=== PATIENT | male | born 1995 | race Caucasian/White ===

== ENCOUNTER 2017-06-06 19:54 | Emergency (ER) | payer OTHER ==
[~2017-06-06] VITALS: Ht 198.1 cm; Wt 95.5 kg
[2017-06-06 19:55] VITALS: BP 113/75; TEMP 99.4
[2017-06-06] MEDS ORDERED: NORCO 325 MG-51 TAB PO (20:38)
[2017-06-06 21:07] VITALS: PULSE 61
== END 2017-06-06 21:09 | disposition home or self-care (01) ==
LOC: COL.ER 19:54
DX: S83.004A Unspecified dislocation of right patella, initial encounter (principal); X50.3XXA Overexertion from repetitive movements, initial encounter; Y93.62 Activity, american flag or touch football; Y92.830 Public park as the place of occurrence of the external cause
CPT/HCPCS: J3010; L1830